=== PATIENT | female | born 1960 | race Two or more races ===

== ENCOUNTER 2017-01-23 16:08 | Emergency (ER) | payer MEDICAID, OTHER, SELFPAY ==
[~2017-01-23] VITALS: Ht 154.9 cm; Wt 84.6 kg
[2017-01-23 16:53] VITALS: BP 141/91
[2017-01-23] MEDS ORDERED: maalox/diphenh/lido/sucralfate 5 ML PO PRN (17:30)
== END 2017-01-23 18:12 | disposition left against medical advice (07) ==
LOC: ED 17:48
DX: J02.9 Acute pharyngitis, unspecified (principal)
CPT/HCPCS: 99281